=== PATIENT | female | born 1935 | race Caucasian/White ===

== ENCOUNTER 2017-02-05 18:57 | Emergency (ER) | payer OTHER, MEDICARE ==
[~2017-02-05] VITALS: Ht 154.9 cm; Wt 63.6 kg
[~2017-02-05 18:57] MED LIST: AMLO-39 PO; COZ100 PO; FOL1 PO; FURO20TA PO; GABA300C PO; INSU100C4 SUBQ; INSU100V10 SC; INSULIN LISPRO SUBQ; LEV250 PO; METHOTREX PO; MTP50TCR PO; MULT-1018 PO; POTA99TA15 PO; PRE10 PO; SMV40T PO; SPIR25TA17 PO; [UNRECOGNIZED DRUG - CODE] PO; [UNRECOGNIZED DRUG - CODE] PO
[2017-02-05 19:11] VITALS: BP 141/60; PULSE 66; RESP 18; O2SAT 96
--- NOTE | 2017-02-05 19:19 | ED.REPORT ---
HPI-Dyspnea / Wheezing Date of Service Feb 05, 2017 ED Provider: Boby العلي DO Pt is a 81 year old female with a history of CHF, dementia, HTN, pneumonia, and DM who presents to the ED via EMS complaining of a sudden onset of SOB today. Her who is her primary caregiver reports that the pt appeared red and flushed and seemed to have some generalized weakness making it hard for her to walk. He also states that the pt has a non-productive cough currently, but she was coughing up phlegm 2 weeks ago. She denies chills and fever. Nursing Notes Stated Complaint: RESPIRATORY DISTRESS Chief Complaint: Respiratory Distress Nursing Notes Reviewed: Yes Allergies: Coded Allergies: No Known Allergies (Unverified Allergy, Unknown, 02/05/17) Scheduled AmLODIPine-Expunged Drug, Do Not Renew! (AmLODIPine-Expunged Drug, Do Not Renew! ) 5 Mg Tablet 10 MG PO DAILY Azithromycin (Zithromax) 250 Mg Tablet 250 MG PO DAILY Folic Acid-Expunged Drug, Do Not Renew! (Folic Acid-Expunged Drug, Do Not Renew! ) 1 Mg Tablet 1 MG PO DAILY Furosemide-Expunged Drug, Do Not Renew! (Furosemide-Expunged Drug, Do Not Renew! ) 20 Mg Tablet 20 MG PO DAILY Gabapentin-Expunged Drug, Do Not Renew! (Neurontin-Expunged Drug, Do Not Renew! ) 300 Mg Capsule 300 MG PO BID INSULIN GLARGINE-Expunged Drug, Do Not Renew! (Lantus-Expunged Drug, Do Not Renew!) 100 Unit/1 Ml Vial 50 UNIT SC DAILY Indapamide-Expunged Drug, Do Not Renew! (Lozol-Expunged Drug, Do Not Renew!) 2.5 Mg Tablet 2.5 MG PO DAILY Insulin GLARGine-Expunged Drug, Do Not Renew! (Lantus-Expunged Drug, Do Not Renew!) 3 Ml Syringe 50 UNIT SUBQ HS Insulin LISPRO-Expunged Drug, Do Not Renew! (Humalog-Expunged Drug, Do Not Renew !) 100 Unit/Ml Unit 10 UNIT SUBQ AC Levofloxacin-Expunged Drug, Do Not Renew! (Levaquin-Expunged Drug, Do Not Renew! ) 250 Mg Tablet 750 MG PO DAILY Losartan-Expunged Drug, Do Not Renew! (Losartan-Expunged Drug, Do Not Renew!) 100 Mg Tablet 100 MG PO DAILY MULTIVITAMIN-Expunged Drug, Do Not Renew! (MULTI VITAMIN -Expunged Drug, Do Not Renew!) 1 Each Tablet 1 EACH PO DAILY MethoTREXate-Expunged Drug, Do Not Renew! (RheumaTREX-Expunged Drug, Do Not Renew!) 2.5 Mg Tablet 2.5 MG PO weekly 10 tablets, 5 in am and 5 in pm weekly Metoprolol Suc-Expunged Drug, Do Not Renew! (Metoprolol Suc-Expunged Drug, Do Not Renew!) 50 Mg Tber 100 MG PO DAILY POTASSIUM GLUC-Expunged Drug, Do Not Renew! (POTASSIUM-Expunged Drug, Do Not Renew!) 99 Mg Tablet 20 MEQ PO DAILY PredniSONE-Expunged Drug, Do Not Renew! (PredniSONE-Expunged Drug, Do Not Renew! ) 10 Mg Tab 40 MG PO DAILY Simvastatin-Expunged Drug, Choose New Med! (Simvastatin-Expunged Drug, Choose New Med!) 40 Mg Tablet 40 MG PO HS Spironolactone-Expunged Drug, Do Not Renew! (Spironolactone-Expunged Drug, Do Not Renew!) 25 Mg Tablet 25 MG PO DAILY Scheduled PRN Hydrocod/APAP-Expunged, Do Not Renew! (Lortab 7.5-Expunged Drug, Do Not Renew!) 1 Ea Tab 1 EA PO BID PRN PRN General Time Seen by MD: 19:19 Chief Complaint Shortness of breath Hx Obtained From: Patient Arrived By: Walk-in Sudden in Onset?: Yes Onset Occurred: Just prior to arrival Symptom Duration: Duration unknown Severity: Current: No pain currently Severity: Maximum: No pain Recent Healthcare: No recent doctor visit, No recent hospitalization Similar Sx Previous: No Past Medical History Past Medical History Pneumonia Arthritis Denies lung disease Reports: Cancer (Breast), Congestive heart failure, Diabetes mellitus, Hypertension, Denies: COPD Reports: Dementia Smoking History Unknown if Ever Smoker Social History Alcohol Use: "Social" Drug Use: Denies drug use Other Social History: Good social support, Ambulatory Status Independent Review of Systems + erythema Constitutional: Denies: Chills, Fever Respiratory: Reports: Non-productive cough, Shortness of breath Complete sys rev & neg: except as marked. Physical Exam Initial Vital Signs Vital Signs (First) Date Time Temp Pulse Resp B/P Pulse Ox O2 Delivery O2 Flow Rate FiO2 02/05/17 19:11 36.8 66 18 141/60 96 Room Air Initial VS: Reviewed Head / Eyes: Atraumatic, Normocephalic Abdomen / GI: Soft, Non-tender Extremities: Vascular intact, Neuro intact Skin: Warm, Dry, No cyanosis Neurologic: Alert, Oriented, Nonfocal Psychiatric: Mood/affect normal, Behavior normal General/Constitutional: Awake, Alert Neck: Atraumatic, Full range of motion Respiratory / Chest: Breath sounds = bilat No obvious respiratory distress, but slightly prolonged expiration. Expiratory Rhonchi in anterior lung abarca bilaterally. Cardiovascular: Heart rate NL, Regular rhythm, Heart sounds NL Trace bilateral lower extremity edema Interpretation & Diagnostics Lab Results Interpretation Result Diagram: 02/05/17195202/05/171952 Test 02/05/17 19:53 02/05/17 21:20 White Blood Count 9.3th/mm3 (3.8-10.1) Red Blood Count 4.52mil/mm3 (3.90-5.20) Hemoglobin 13.8g/dL (12.0-15.6) Hematocrit 42.7% (35.0-46.0) Mean Corpuscular Volume 94.5fL (81-100) Mean Corpuscular Hemoglobin 30.5pg (27.0-35.0) Mean Corpuscular Hemoglobin Concent 32.3% (32.0-37.0) Red Cell Distribution Width 12.5% (12.3-15.4) Platelet Count 180bil/L (150-400) Neutrophils (%) (Auto) 76.7% (40-74) Lymphocytes (%) (Auto) 12.6% (14-46) Monocytes (%) (Auto) 7.9% (4-12) Eosinophils (%) (Auto) 2.4% (0-5) Basophils (%) (Auto) 0.2% (0-3) Sodium Level 141mEq/L (134-144) Potassium Level 4.1mEq/L (3.5-5.2) Chloride Level 100mEq/L (97-108) Carbon Dioxide Level 26mmol/L (18-29) Blood Urea Nitrogen 16mg/dL (8-27) Creatinine 0.78mg/dL (0.57-1.00) Estimat Glomerular Filtration Rate 102mL/min (>59) Glucose Level 293mg/dL (60-99) Lactic Acid Level 1.6mmol/L (0.4-2.0) Calcium Level 8.9mg/dL (8.5-10.1) Total Bilirubin 0.3mg/dL (0.0-1.2) Aspartate Amino Transf (AST/SGOT) 20U/L (0-50) Alanine Aminotransferase (ALT/SGPT) 21U/L (0-32) Alkaline Phosphatase 64U/L (25-165) Troponin T < 0.010ug/L (0.0-0.011) Pro-B-Type Natriuretic Peptide 628.3pg/mL (0-738) Total Protein 6.8g/dL (6.4-8.4) Albumin 3.9g/dL (3.4-5.0) Procalcitonin 0.04ng/mL (0.00-0.08) Urine Color Yellow (YELLOW) Urine Appearance Hazy (CLEAR,HAZY) Urine pH 5.5 (5.0-8.0) Urine Specific [place] 1.025 (1.003-1.035) Urine Protein Negativemg/dL (NEG,TRACE) Urine Glucose (UA) 1000mg/dL (NEGATIVE) Urine Ketones Negativemg/dL (NEGATIVE) Urine Occult Blood Negative (NEGATIVE) Urine Nitrite Negative (NEGATIVE) Urine Bilirubin Negative (NEGATIVE) Urine Urobilinogen Normalmg/dL (NORMAL) Urine Leukocyte Esterase Small (NEGATIVE) Urine RBC 0-2/hpf (0-2) Urine WBC 0-5/hpf (0-5) Urine Epithelial Cells Few/hpf (NONE-MOD) Urine Crystals None seen (NONE SEEN) Urine Bacteria Few/hpf (NONE-FEW) Urine Hyaline Casts None/lpf (NONE) Urine Granular Casts None seen (NONE SEEN) Urine Waxy Casts None seen (NONE SEEN) Urine Red Blood Cell Casts None seen (NONE SEEN) Urine White Blood Cell Casts None seen (NONE SEEN) Urine Mucus Present (None Seen) Urine Trichomonas None seen (NONE SEEN) Urine Yeast None (NONE SEEN) Urinalysis Comment None Urine Culture Reflexed Indicated ECG Interpretation ECG Interpretation: Sinus rhythm with a rate fo 61 Atrial premature complex LBBB No significant change from 10/02/12 Time: 19:41 Interpreted by: ED physician X-Ray Chest Interpretation Chest Xray Interpretation: IMPRESSION: No acute cardiopulmonary disease. Dictated by: Remberto Villasenor M.D. on 02/05/2017 at 20:07 View: Portable, 1 view Interpretation / Wet Read by: Interpret - Radiologist Re-Eval/Medical Decision Med Decision/Clinical Course 81-year-old female with multiple medical comorbidities presenting with her who is concerned about her breathing and cough. He notes she is also been generally weaker. There is no x-ray evidence of pneumonia and pro calcitonin is negative. She has no white blood cell count elevation. Her pulse ox reveals no hypoxia. I reassured her and her regarding these findings, but given her respiratory rhonchi and new cough which improved somewhat with breathing treatments, and that have been going on for the past several weeks, I will treat her with azithromycin for acute bronchitis. Patient and her are agreeable with this plan Source of Hx: Old records Re-Evaluation/Progress #1: Time of Eval: 19:36 Re-Evaluation/Progress Note: Informed pt of plan for treatment. Pt understands and agrees with plan for treatment. All questions addressed. Re-Evaluation/Progress #2: Time of Eval: 21:47 Re-Evaluation/Progress Note: Pt rechecked. Pt reports that the breathing treatment provided mild relief. Informed pt of x-ray results and plan for discharged. Pt understands and agrees with plan for discharge. F/U instructions and RTER warnings given. All questions addressed. Counseled Regarding: Diagnosis, Lab results, Need for follow-up, When/why to return to ED Discharge & Departure Impression: Primary Impression: Bronchitis Additional Impression: Hyperglycemia Disposition: Home Discharge Condition All VS Reviewed: Yes Condition: Stable Patient Instructions: Acute Bronchitis (ED) Additional Instructions: The chest x-ray does not show a pneumonia. I suspect that you might have bronchitis. Your labs were reassuring. Call your primary care provider on Tuesday for a follow up appointment next week. Return to the Emergency Department for any new or concerning symptoms. Referrals: Martin Hugo MD (PCP) Scribe Attestation Portions of this note were transcribed by Rebecca Fairchild. IDr. العلي personally performed the history, physical exam and medical decision-making; I reviewed and confirmed the accuracy of the information in the transcribed note. Signed by: Aby Duenas, 02/05/17. copies to: Martin Hugo MD, Gary R DO Feb 05, 2017 19:19 Rebecca Benavides Feb 05, 2017 19:41
[2017-02-05] MEDS ORDERED: Albuterol 2.5 mg/3 mL Inhalation Solution NEB ONE (19:40)
[2017-02-05] MEDS ORDERED: Albuterol-Ipratropium 3 mL Inhalation Solution NEB ONE (19:40)
[2017-02-05 19:58] LABS: BASOPHILS % (AUTO) 0.2 % (0-3); EOSINOPHILS % (AUTO) 2.4 % (0-5); MONOCYTES % (AUTO) 7.9 % (4-12); Mean Corpuscular Hemoglobin 30.5 pg (27.0-35.0); Mean Corpuscular Volume 94.5 fL (81-100); NEUTROPHILS % (AUTO) 76.7 % (40-74); Platelet Count 180 bil/L (150-400)
--- NOTE | 2017-02-05 20:10 | DRSVH ---
PROCEDURE: X-RAY CHEST ONE VIEW, PORTABLE ([id number]) INDICATIONS: 81 year-old female with dyspnea. TECHNIQUE: One view of the chest was acquired. COMPARISON: [facility], , CHEST 1 VIEW, 05/21/2014, 16:39. [facility], CHEST 2VW, 08/2012, 2:[address] [facility], , CHEST 1VW (PORTABLE), 10/03/2012, 6:17. FINDINGS: Surgical changes and devices: Patient is status post interval right shoulder arthroplasty. Lungs and pleura: No pleural effusions or pneumothorax. Lungs are clear. Mediastinum: Mediastinal contours appear normal. Heart size is normal. There is aortic atheroscler osis. Bones and chest wall: No suspicious bony lesions. Overlying soft tissues appear unremarkable. IMPRESSION: No acute cardiopulmonary disease. Dictated by: Remberto Villasenor M.D. on 02/05/2017 at 20:07 Approved by: Remberto Villasenor M.D. on 02/05/2017 at 20:08
[2017-02-05 20:34] VITALS: PULSE 59; RESP 16; O2SAT 94
[2017-02-05 20:45] LABS: TROPONIN T < 0.010 ug/L (0.0-0.011)
[2017-02-05 20:55] VITALS: BP 154/90; PULSE 86; RESP 20; O2SAT 98
[2017-02-05 21:09] VITALS: BP 138/97; PULSE 72; RESP 20; O2SAT 97
[2017-02-05 21:42] LABS: APPEARANCE,URINE HAZY (CLEAR,HAZY); COLOR,URINE YELLOW (YELLOW); OCCULT BLOOD,URINE NEGATIVE (NEGATIVE); PH,URINE 5.5 (5.0-8.0); UROBILINOGEN,URINE NORMAL (NORMAL)
[2017-02-05] MEDS ORDERED: ZIT250 PO (22:09)
[2017-02-05 22:43] VITALS: BP 158/73; PULSE 66; RESP 20; O2SAT 94
== END 2017-02-05 22:45 | disposition home or self-care (01) ==
LOC: EDBD 18:57 → SED 18:57
DX: J40 Bronchitis, not specified as acute or chronic (principal); I11.0 Hypertensive heart disease with heart failure; I50.9 Heart failure, unspecified; E11.59 Type 2 diabetes mellitus with other circulatory complications; E11.65 Type 2 diabetes mellitus with hyperglycemia; J44.9 Chronic obstructive pulmonary disease, unspecified; F03.90 Unspecified dementia, unspecified severity, without behavioral disturbance, psychotic disturbance, mood disturbance, and anxiety; Z87.01 Personal history of pneumonia (recurrent)
CPT/HCPCS: 36415; 71010; 80053; 81000; 83605; 83880; 84145; 84484; 85025; 87040; 87086; 87088; 93005; 94640; 94664; 99285; J7613; J7620